=== PATIENT | male | born 1970 | race Caucasian/White ===

== ENCOUNTER 2019-06-09 11:05 | Inpatient (IN) | payer OTHER ==
[~2019-06-09] VITALS: Ht 170.2 cm; Wt 75.3 kg
[2019-06-09 12:08] LABS: BASOPHILS % 0.6 % (0.0-2.0); EOSINOPHILS % 2.7 % (0.0-5.0); HEMATOCRIT. 45.3 % (42.0-52.0); HEMOGLOBIN. 15.6 g/dL (14.0-18.0); LYMPHOCYTES % 28.8 % (20.0-50.0); MEAN CORPUSCULAR HEMOGLOBIN 30.2 pg (28.0-32.0); MEAN CORPUSCULAR VOLUME 87.9 fL (80.0-94.0); MEAN PLATELET VOLUME 10.3 fl (7.4-10.4); MONOCYTES % 8.4 % (2.0-8.0); NEUTROPHILS % 59.5 % (40.0-76.0); PLATELET 136 x1000/uL (130-400); RED BLOOD CELL COUNT 5.15 mill/uL (4.7-6.1); RED CELL DISTRIBUTION WIDTH 13.3 % (11.6-14.6)
[2019-06-09 12:10] LABS: CHLORIDE 106 mEq/L (98-107)
[2019-06-09] MEDS ORDERED: ACETAMINOPHEN 325MG TABLET PO PRN ×2 (13:30)
[2019-06-09] MEDS ORDERED: TRAMADOL 50MG TABLET PO PRN (13:30)
[2019-06-09] MEDS ORDERED: ONDANSETRON HCL 4MG/2ML INJ IV PRN (13:30)
[2019-06-09] MEDS ORDERED: CLONIDINE 0.1MG TABLET PO PRN (13:30)
[2019-06-09] MEDS ORDERED: NITROGLYCERIN 0.4MG TABLET SL SL PRN (13:30)
[2019-06-09] MEDS ORDERED: ENOXAPARIN 40MG/0.4ML SYR SUBCUT SCH (13:30)
[2019-06-09] MEDS ORDERED: ZOLPIDEM TARTRATE 5MG TABLET PO PRN (13:30)
[2019-06-09] MEDS ORDERED: IPRATROPIUM/ALBUTEROL 0.5-3(2.5)MG/3ML NEB NEB PRN (13:30)
[2019-06-09] MEDS ORDERED: GUAIFENESIN 200MG/10ML SUGAR FREE UDC PO PRN (13:30)
[2019-06-09] MEDS ORDERED: MAGNESIUM/ALUMINUM HYDROXIDE/SIMETHICONE 30ML UDC PO PRN (13:30)
[2019-06-09] MEDS ORDERED: LORAZEPAM 0.5MG TABLET PO PRN (13:30)
[2019-06-09] MEDS ORDERED: KETOROLAC 15MG/ML VIAL IV PRN (13:30)
[2019-06-09] MEDS ORDERED: DOCUSATE SODIUM 100MG CAPSULE PO PRN (13:30)
[2019-06-09 14:40] LABS: LDL CHOLESTEROL 170 mg/dL (5-100)
[2019-06-09 14:42] LABS: HDL CHOLESTEROL 54 mg/dL (40-59)
[2019-06-09 14:44] LABS: CREATINE KINASE 121 IU/L (39-308)
[2019-06-09 14:46] LABS: CREATINE KINASE MB FRACTION 1.5 ng/mL (0.5-3.6)
[2019-06-09] MEDS ORDERED: DEXTROSE 50% WATER 50ML SYRINGE IV PRN (16:30)
[2019-06-09] MEDS ORDERED: SUCRALFATE 1 G/10 ML UDC PO SCH ×2 (17:00→18:15)
[2019-06-09] MEDS ORDERED: BLOOD SUGAR DIAGNOSTIC STRIP TEST SCH (18:15)
[2019-06-09] MEDS ORDERED: INSULIN LISPRO 100 UNITS/ML SUBCUT SCH (18:15)
[2019-06-09] MEDS: INSULIN LISPRO 100 UNITS/ML SUBCUT SCH ×2 (18:20→21:00)
[2019-06-09] MEDS: BLOOD SUGAR DIAGNOSTIC STRIP TEST SCH ×2 (19:06→21:00)
[2019-06-09] MEDS ORDERED: ATORVASTATIN CALCIUM 20MG TABLET PO NR (21:15)
[2019-06-09] MEDS: FAMOTIDINE 20MG TABLET PO SCH (21:18)
[2019-06-09 23:31] LABS: CREATINE KINASE 109 IU/L (39-308); CREATINE KINASE MB FRACTION 1.3 ng/mL (0.5-3.6)
[2019-06-10] VITALS: BP 132/88
[2019-06-10 03:27] LABS: *BARBITURATES SCREEN URINE NEGATIVE (NEGATIVE)
[2019-06-10 03:28] LABS: *AMPHETAMINES SCREEN URINE NEGATIVE (NEGATIVE); *BENZODIAZEPINES SCREEN URINE NEGATIVE (NEGATIVE); *COCAINE SCREEN URINE NEGATIVE (NEGATIVE); CANNABINOID URINE SCREEN NEGATIVE (NEGATIVE); METHADONE URINE SCREEN NEGATIVE (NEGATIVE); PHENCYCLIDINE URINE SCREEN NEGATIVE (NEGATIVE)
[2019-06-10 04:00] VITALS: BP_SYST 105
[2019-06-10] MEDS: BLOOD SUGAR DIAGNOSTIC STRIP TEST SCH ×4 (05:36→21:30)
[2019-06-10] MEDS: SUCRALFATE 1 G/10 ML UDC PO SCH ×4 (05:52→21:29)
[2019-06-10] MEDS: INSULIN LISPRO 100 UNITS/ML SUBCUT SCH ×4 (06:11→21:00)
[2019-06-10] MEDS ORDERED: REGADENOSON 0.4 MG/5 ML IV SCH (07:15)
[2019-06-10 08:00] VITALS: BP 113/64
[2019-06-10] MEDS: ASPIRIN 325MG EC TABLET PO SCH (08:44)
[2019-06-10] MEDS: FAMOTIDINE 20MG TABLET PO SCH ×2 (08:44→21:29)
[2019-06-10] MEDS: ENOXAPARIN 40MG/0.4ML SYR SUBCUT SCH (08:45)
[2019-06-10 12:00] VITALS: BP 117/74
[2019-06-10 16:00] VITALS: BP 114/71
[2019-06-10 20:08] VITALS: BP 108/64
[2019-06-10] MEDS ORDERED: ATORVASTATIN CALCIUM 20MG TABLET PO SCH (21:00)
[2019-06-11] VITALS: BP 106/65
[2019-06-11 04:00] VITALS: BP 107/67
[2019-06-11 06:06] LABS: CHLORIDE 107 mEq/L (98-107)
[2019-06-11 06:10] LABS: BASOPHILS % 0.5 % (0.0-2.0); EOSINOPHILS % 3.5 % (0.0-5.0); HEMATOCRIT. 47.4 % (42.0-52.0); HEMOGLOBIN. 16.3 g/dL (14.0-18.0); LYMPHOCYTES % 29.9 % (20.0-50.0); MEAN CORPUSCULAR HEMOGLOBIN 30.3 pg (28.0-32.0); MEAN PLATELET VOLUME 10.8 fl (7.4-10.4); MONOCYTES % 8.8 % (2.0-8.0); NEUTROPHILS % 57.3 % (40.0-76.0); PLATELET 141 x1000/uL (130-400); RED BLOOD CELL COUNT 5.39 mill/uL (4.7-6.1); RED CELL DISTRIBUTION WIDTH 13.5 % (11.6-14.6)
[2019-06-11] MEDS: BLOOD SUGAR DIAGNOSTIC STRIP TEST SCH ×2 (06:22→12:20)
[2019-06-11] MEDS: SUCRALFATE 1 G/10 ML UDC PO SCH (06:22)
[2019-06-11] MEDS: INSULIN LISPRO 100 UNITS/ML SUBCUT SCH ×2 (07:50→12:32)
[2019-06-11 08:22] VITALS: BP 107/69
[2019-06-11] MEDS ORDERED: REGADENOSON 0.4 MG/5 ML IV ONE (09:01)
[2019-06-11] MEDS: ASPIRIN 325MG EC TABLET PO SCH (10:15)
[2019-06-11] MEDS: FAMOTIDINE 20MG TABLET PO SCH (10:15)
[2019-06-11] MEDS: ENOXAPARIN 40MG/0.4ML SYR SUBCUT SCH (10:16)
[2019-06-11 10:51] VITALS: BP 110/65
[2019-06-11 11:40] VITALS: BP 126/85
[2019-06-12 08:58] LABS: OPIATES URINE SCREEN NEGATIVE (NEGATIVE)
== END 2019-06-11 12:53 | disposition home or self-care (01) | DRG 313 ==
LOC: ER 11:32 → SUPCPDRO 13:47 → EDBEDREQ 19:31 → ENRESERV 23:19 → 6WST 23:59
PROVIDERS: ADMIT Internal Medicine; ATTEND Internal Medicine
DX: R07.89 Other chest pain (principal); E11.9 Type 2 diabetes mellitus without complications; E78.00 Pure hypercholesterolemia, unspecified; E78.5 Hyperlipidemia, unspecified; R00.1 Bradycardia, unspecified; Z79.4 Long term (current) use of insulin; Z82.49 Family history of ischemic heart disease and other diseases of the circulatory system; Z82.3 Family history of stroke
CPT/HCPCS: 36415; 71045; 78452; 80048; 80053; 80061; 80305; 82550; 82553; 82962; 83036; 83880; 84484; 85025; 93005; 93017; 93306; 93970; 99285; A9500; J1650; J2785